=== PATIENT | female | born 1955 | race Caucasian/White ===

== ENCOUNTER → 2017-06-24 | Outpatient (CLI) | payer MEDICARE, BC ==
[~2017-06-24] MED LIST: ASPIRIN 325 MG TABLET; REGADENOSON 0.4 MG/5 ML DISP.SYRIN. IV
== END | disposition home or self-care (01) ==
LOC: PCVCIMAG 09:11
DX: R07.9 Chest pain, unspecified (principal); E66.9 Obesity, unspecified; I50.9 Heart failure, unspecified; I44.0 Atrioventricular block, first degree
CPT/HCPCS: 78452; 93017; A9500; J2785

== ENCOUNTER → 2018-01-06 | Outpatient (CLI) | payer MEDICARE, BC | END | disposition home or self-care (01) | LOC: PCVCCLINIC 14:42 | DX: I50.32 Chronic diastolic (congestive) heart failure (principal); N18.6 End stage renal disease; I27.20 Pulmonary hypertension, unspecified; I95.1 Orthostatic hypotension; E78.5 Hyperlipidemia, unspecified; R94.31 Abnormal electrocardiogram [ECG] [EKG]; Z88.8 Allergy status to other drugs, medicaments and biological substances; Z79.899 Other long term (current) drug therapy | CPT/HCPCS: 80061; 93005; G0463 ==

== ENCOUNTER → 2018-09-22 | Outpatient (CLI) | payer MEDICARE, BC ==
--- NOTE | 2018-09-22 16:14 | PCVCIMAG ---
APPROVED REPORT Study performed: 09/22/2018 14:49:15 EXAM: Comprehensive 2D, Doppler, and color-flow Echocardiogram Patient Location: Echo lab Status: routine BSA: 2.00 HR: 81 bpmBP: 104/60 mmHg Rhythm: NSR Other Information Study Quality: Technically Limited Indications Renal Disease, Dialysis, Pulmonary hypertension, CHF 2D Dimensions IVSd: 11.15 (7-11mm)LVOT Diam: 24.17 (18-24mm) LVDd: 47.18 mm PWd: 10.65 (7-11mm)Ascending Ao: 37.09 (22-36mm) LVDs: 39.21 (25-40mm) Left Atrium: 44.73 (27-40mm) Aortic Root: 29.68 mm LV Single Plane 4CH: 63.45 % Volumes Left Atrial Volume (Systole) Single Plane 4CH: 50.15 mL Aortic Valve AoV Peak Morgan.: 1.13 m/s AO Peak Gr.: 5.09 mmHg Mitral Valve E/A Ratio: 1.0 MV Decel. Time: 142.55 ms MV E Max Morgan.: 0.94 m/s MV A Morgan.: 0.97 m/s IVRT: 141.87 ms TDI E/Lateral E': 7.83E/Medial E': 11.75 Medial E' Morgan.: 0.08 m/s Lateral E' Morgan.: 0.12 m/s Pulmonary Valve PV Peak Gr.: 2.53 mmHg Tricuspid Valve TR Peak Morgan.: 3.50 m/s TR Peak Gr.: 49.05 mmHg Left Ventricle The left ventricle is normal size. There is normal LV segmental wall motion. There is normal left ventricular wall thickness. Septal flattening due to increase right ventricular pressure. Left ventricular systolic function is normal. The left ventricular ejection fraction is within the normal range. LVEF is 50%. The left ventricular diastolic function is normal. Right Ventricle Right ventricle is moderately dilated. The right ventricular systolic function is normal. Atria The left atrium size is normal. Right atrium is dilated. Aortic Valve The aortic valve is normal in structure. No aortic regurgitation is present. There is no aortic valvular stenosis. Mitral Valve The mitral valve is normal in structure. There is no mitral valve regurgitation noted. No evidence of mitral valve stenosis. Tricuspid Valve The tricuspid valve is normal in structure. Mild tricuspid regurgitation. Pulmonary artery pressure is 56mmHg. Pulmonic Valve The pulmonary valve is normal in structure. There is no pulmonic valvular regurgitation. Great Vessels The aortic root is normal in size. IVC is normal in size and collapses >50% with inspiration. Pericardium There is no pericardial effusion. <Conclusion> The left ventricle is normal size. There is normal left ventricular wall thickness. Septal flattening due to increase right ventricular pressure. LVEF is 50%. The left ventricular diastolic function is normal. Right ventricle is moderately dilated. Right atrium is dilated. The aortic valve is normal in structure. There is no mitral valve regurgitation noted. Mild tricuspid regurgitation. Pulmonary artery pressure is 56mmHg. The aortic root is normal in size. There is no pericardial effusion.
== END | disposition home or self-care (01) ==
LOC: PCVCIMAG 14:18
PROVIDERS: ATTEND Internal Medicine Cardiovascular Disease
DX: I07.1 Rheumatic tricuspid insufficiency (principal); R07.89 Other chest pain; R06.02 Shortness of breath; I50.32 Chronic diastolic (congestive) heart failure; N18.6 End stage renal disease; E78.5 Hyperlipidemia, unspecified; I95.9 Hypotension, unspecified; R42 Dizziness and giddiness; Z79.899 Other long term (current) drug therapy
CPT/HCPCS: 36415; 80061; 93005; 93306; G0463